=== PATIENT | male | born 1960 | race Two or more races ===

== ENCOUNTER 2019-12-25 05:45 | Day surgery (SDC) | payer OTHER ==
[~2019-12-25 05:45] MED LIST: SYNTHROID137 MCG PO; TOPROL XL50 M1 PO; [UNRECOGNIZED DRUG - CODE]
== END 2019-12-25 14:00 | disposition home or self-care (01) ==
LOC: CIR.AMB 05:45
DX: N40.0 Benign prostatic hyperplasia without lower urinary tract symptoms (principal); N21.0 Calculus in bladder

== ENCOUNTER 2022-09-10 18:35 | Emergency (ER) | payer OTHER ==
[~2022-09-10] VITALS: Ht 182.9 cm; Wt 122.5 kg
[2022-09-10] MEDS ORDERED: METOPROLOL SUCC50 MG PO (20:54)
== END 2022-09-11 12:09 | disposition home or self-care (01) ==
LOC: ER 18:35
DX: U07.1 COVID-19 (principal); I10 Essential (primary) hypertension; E03.9 Hypothyroidism, unspecified; I00 Rheumatic fever without heart involvement

== ENCOUNTER 2023-08-01 15:48 | Emergency (ER) | payer OTHER ==
[~2023-08-01] VITALS: Ht 182.9 cm; Wt 122.5 kg
[~2023-08-01 15:48] MED LIST changes: +METOPROLOL SUCC50 MG PO
[2023-08-01] MEDS ORDERED: ATORVASTATIN CA20 MG PO (16:08)
[2023-08-01 16:55] LABS: HEMATOCRIT 39.8 % (39.0-48.0); MEAN CELL VOLUME 89.1 fL (80.0-100.00); MEAN CORPUSCULAR HEMOGLOBIN 29.2 pg (27.00-32.0); MEAN CORPUSCULAR HGB CONC 32.8 g/dl (32.0-36.0); PLATELET COUNT 195 K/uL (150-450); RED BLOOD COUNT 4.47 M/uL (4.00-6.00); RED CELL DISTRIBUTION WIDTH 13.6 % (11.5-14.5)
[2023-08-01 17:03] LABS: URINE APPEARANCE Clear; URINE BILIRRUBIN Negative (NEGATIVE); URINE BLOOD Negative; URINE COLOR Yellow; URINE GLUCOSE Negative (NEGATIVE); URINE LEUKOCYTE Negative; URINE NITRATE Negative; URINE PROTEIN Negative (NEGATIVE)
[2023-08-01 17:07] LABS: URINE BACTERIA 15.1 uL (0.0-1933); URINE EPITHELIAL CELLS 5.7 uL (0.0-38.8); URINE RBC 4.3 uL (0.0-20.8); URINE WBC 8.3 uL (0.0-23.2)
[2023-08-01 17:14] LABS: CALCIUM 8.5 mg/dL (8.5-10.1); CREATININE SERUM 0.78 mg/dL (0.70-1.30); GFR 100.85; POTASSIUM 3.53 mEq/L (3.5-5.1)
[2023-08-01] MEDS ORDERED: PEPCID AC20 MG PO (18:27)
[2023-08-01] MEDS ORDERED: INTESTINEX680 M1 PO (18:27)
[2023-08-01] MEDS ORDERED: ONDANSETRON HCL4 MG PO (18:27)
== END 2023-08-01 18:37 ==
LOC: ER
PROVIDERS: Nurse Practitioner Family
DX: K52.89 Other specified noninfective gastroenteritis and colitis (principal); R11.10 Vomiting, unspecified; E11.9 Type 2 diabetes mellitus without complications; I10 Essential (primary) hypertension; E03.9 Hypothyroidism, unspecified; I00 Rheumatic fever without heart involvement
CPT/HCPCS: 36415; 93005; 96365; 96366; 99284; J7042

== ENCOUNTER 2024-12-11 06:00 | Inpatient (IN) | payer OTHER ==
[2024-12-07 07:50] VITALS: BP 112/754
[2024-12-07 07:55] LABS: HEMOGLOBIN 13.5 g/dL (13-16.00); MEAN CELL VOLUME 89.4 fL (80.0-100.00); MEAN CORPUSCULAR HEMOGLOBIN 30.2 pg (27.00-32.0); MEAN CORPUSCULAR HGB CONC 33.7 g/dl (32.0-36.0); PLATELET COUNT 201 K/uL (150-450); RED BLOOD COUNT 4.48 M/uL (4.00-6.00); RED CELL DISTRIBUTION WIDTH 14.1 % (11.5-14.5)
[2024-12-07 08:01] LABS: PH,URINE 6.5 (5.0-8.0); URINE APPEARANCE Clear; URINE BILIRRUBIN Negative (NEGATIVE); URINE BLOOD Small; URINE COLOR Yellow; URINE GLUCOSE Negative (NEGATIVE); URINE KETONE Negative (NEGATIVE); URINE LEUKOCYTE Negative; URINE NITRATE Negative; URINE PROTEIN Negative (NEGATIVE); URINE UROBILINOGEN 0.2 E.U./dl
[2024-12-07 08:03] LABS: URINE BACTERIA 14.6 uL (0.0-1933); URINE EPITHELIAL CELLS 2.5 uL (0.0-38.8); URINE RBC 107.9 uL (0.0-20.8); URINE WBC 18.8 uL (0.0-23.2)
[2024-12-07 08:23] LABS: INR 0.95; PARTIAL THROMBOPLASTIN TIME 27.3 SECONDS (22.0-34.0); PROTHROMBIN TIME 10.4 SECONDS (9.0-11.5)
[2024-12-07 08:24] LABS: CALCIUM 9.2 mg/dL (8.5-10.1); CREATININE SERUM 0.7 mg/dL (0.70-1.30); GFR 113.53; POTASSIUM 4.41 mEq/L (3.5-5.1)
[~2024-12-11] VITALS: Ht 180.3 cm; Wt 127.0 kg
[~2024-12-11 06:00] MED LIST changes: +ATORVASTATIN CA20 MG PO; +INTESTINEX680 M1 PO; +JANUMET 50-1,01 EACH PO; +ONDANSETRON HCL4 MG PO; +PEPCID AC20 MG PO; +[UNRECOGNIZED DRUG - CODE] IM
[2024-12-11] MEDS ORDERED: GENTAMICIN SULFATE 40 MG/ML VIAL ONE (08:15)
[2024-12-11] MEDS ORDERED: ONDANSETRON HCL 2 MG/ML VIAL IV PRN (12:15)
[2024-12-11] MEDS ORDERED: OxyCODONE HCL/APAP UD (PERCOCET) PO PRN (12:15)
[2024-12-11] MEDS ORDERED: PHENAZOPYRIDINE HCL 100 MG TABLET PO SCH (13:00)
[2024-12-11] MEDS ORDERED: ONDANSETRON HCL 2 MG/ML VIAL IV ONE (13:40)
[2024-12-11] MEDS ORDERED: MORPHINE SULFATE 4 MG/ML VIAL IV ONE (16:45)
[2024-12-11] MEDS ORDERED: PHENAZOPYRIDINE HCL 100 MG TABLET PO ONE (17:21)
[2024-12-11 18:06] VITALS: BP 129/70; O2SAT 98
[2024-12-12 01:32] VITALS: BP 143/77; O2SAT 99
[2024-12-12 07:51] LABS: CALCIUM 9.1 mg/dL (8.5-10.1); CREATININE SERUM 0.68 mg/dL (0.70-1.30); GFR 117.4; POTASSIUM 4.62 mEq/L (3.5-5.1)
[2024-12-12 08:17] LABS: HEMATOCRIT 38.9 % (39.0-48.0); HEMOGLOBIN 13.2 g/dL (13-16.00); MEAN CELL VOLUME 89.5 fL (80.0-100.00); MEAN CORPUSCULAR HEMOGLOBIN 30.3 pg (27.00-32.0); MEAN CORPUSCULAR HGB CONC 33.9 g/dl (32.0-36.0); RED BLOOD COUNT 4.35 M/uL (4.00-6.00)
[2024-12-12] MEDS ORDERED: TAMSULOSIN HCL 0.4 MG CAP PO SCH (09:00)
[2024-12-12] MEDS ORDERED: CEFTRIAXONE SODIUM 2,000 MG in DEXTROSE 5 % IN WATER 100 ML IV SCH (09:00)
[2024-12-12 09:24] VITALS: BP 150/74; O2SAT 97
[2024-12-12 09:24] LABS: PLATELET COUNT 171 K/uL (150-450)
== END 2024-12-12 12:15 | disposition home or self-care (01) | DRG 714 ==
LOC: CIR.AMB 06:00 → SURH 15:53
PROVIDERS: ADMIT Urology; ATTEND Urology
PROC: 0TCB8ZZ Extirpation of Matter from Bladder, Via Natural or Artificial Opening Endoscopic (ICD-10-PCS; 2024-12-11)
PROC: 0VT08ZZ Resection of Prostate, Via Natural or Artificial Opening Endoscopic (ICD-10-PCS; principal; 2024-12-11 11:00)
DX: N40.1 Benign prostatic hyperplasia with lower urinary tract symptoms (principal); R33.9 Retention of urine, unspecified; N21.0 Calculus in bladder